=== PATIENT | female | born 2000 | race Asian ===

== ENCOUNTER → 2025-08-02 | Outpatient (CLI) | payer OTHER, SELFPAY ==
--- NOTE | 2025-08-02 08:46 | XR_ITS ---
Examination: Pelvic ultrasound, transabdominal, complete Technique: Transabdominal ultrasound of the pelvis performed using grayscale imaging Date and time of exam: August 02, 2025, 0854 hours INDICATIONS: Pelvic and perineal pain 1 year FINDINGS: Uterus 6.5 cm retroverted, no uterine mass or intrauterine gestation. Endometrial stripe 0.9 cm Right ovary 3.1 cm arterial flow 16 mm follicular cyst Left ovary 3.3 cm arterial flow No fluid in the cul-de-sac IMPRESSION: No uterine mass or intrauterine gestation
== END | disposition home or self-care (01) ==
PROVIDERS: PCP Nurse Practitioner Family; Referring Provider Nurse Practitioner Family; Visit Provider Nurse Practitioner Family
DX: R10.30 Lower abdominal pain, unspecified (principal)
CPT/HCPCS: 76856